=== PATIENT | male | born 1975 | race Two or more races ===

== ENCOUNTER 2023-07-10 19:40 | Emergency (ER) | payer SELFPAY ==
[~2023-07-10] VITALS: Ht 170.2 cm; Wt 176.0 kg
[2023-07-10 19:47] VITALS: BP 128/77; PULSE 116; RESP 22; TEMP 97.8
== END 2023-07-10 20:55 | disposition left against medical advice (07) ==
LOC: EMS 19:44
DX: R07.9 Chest pain, unspecified (principal); Z53.21 Procedure and treatment not carried out due to patient leaving prior to being seen by health care provider
CPT/HCPCS: 93005; 99281; Z7502